=== PATIENT | male | born 1960 | race Caucasian/White ===

== ENCOUNTER → 2018-10-20 08:55 | Outpatient (CLI) | payer MEDICARE | END | disposition home or self-care (01) | LOC: D.US 08:30 → D.NM 09:30 | PROVIDERS: ATTEND Internal Medicine Gastroenterology | DX: R10.13 Epigastric pain (principal); R13.10 Dysphagia, unspecified; R14.2 Eructation; K31.89 Other diseases of stomach and duodenum ==